=== PATIENT | female | born 1965 | race Caucasian/White ===

== ENCOUNTER → 2019-01-19 16:14 | Outpatient (CLI) | payer OTHER, SELFPAY | PROVIDERS: Visit Provider Physician Assistant | DX: N89.8 Other specified noninflammatory disorders of vagina (principal) | CPT/HCPCS: 87210 ==

== ENCOUNTER → 2019-01-20 11:01 | Outpatient (CLI) | payer OTHER, SELFPAY ==
[2019-01-20 13:31] LABS: Urine N gonorrhoeae NOT DETECTED
[2019-01-20 13:38] LABS: Urine Chlamydia NOT DETECTED
== END ==
PROVIDERS: Visit Provider Physician Assistant
DX: R30.0 Dysuria (principal)
CPT/HCPCS: 87491; 87591

== ENCOUNTER → 2019-01-27 10:26 | Outpatient (CLI) | payer OTHER, SELFPAY | PROVIDERS: PCP Physician Assistant | DX: R30.0 Dysuria (principal); R39.15 Urgency of urination | CPT/HCPCS: 87086 ==